=== PATIENT | female | born 1985 | race Caucasian/White ===

== ENCOUNTER 2017-09-27 18:50 | Emergency (ER) | payer BC, OTHER ==
[2017-09-27] MEDS ORDERED: Acetaminophen 325 MG TAB ONE (19:24)
[2017-09-27] MEDS ORDERED: traMADol HCl 50 MG TAB ONE (19:24)
--- NOTE | 2017-09-27 19:31 | RAD ---
EXAM: RIGHT ANKLE THREE VIEWS 09/27/17 COMPARISON: 06/02/13. HISTORY: Injury. Twisting injury. Patient stepped in a hole. Patient heard a pop. FINDINGS: Small spur of the calcaneus is noted. There is soft tissue swelling. Joint spaces are preserved. Fra cture is not appreciated. IMPRESSION: 1. No fracture. 2. Soft tissue swelling. POS: [facility]
== END 2017-09-27 20:00 | disposition home or self-care (01) ==
LOC: ERS 18:50
DX: S93.401A Sprain of unspecified ligament of right ankle, initial encounter (principal); W17.2XXA Fall into hole, initial encounter

== ENCOUNTER 2018-05-11 18:13 | Emergency (ER) | payer SELFPAY ==
[2018-05-11 20:14] LABS: Bilirubin Negative (Negative); Blood, Urine Small (Negative); Clarity CLEAR (Clear); Glucose, Urine (Dipstick) Negative (Negative); Leukocyte Negative (Negative); Nitrite Negative (Negative); Protein, Urine (Dipstick) Negative (Neg-Trace); Specific Gravity, Urine 1.009 (1.002-1.036); Urobilinogen 0.2 mg/dL (0.2-1.0); pH, Urine 6.5 (5.0-9.0)
[2018-05-11 20:19] LABS: Pregnancy Test - Urine (BHCG) Negative (Negative); Pregu Control Background? CLEAR/WHITE (CLR/WHITE); Pregu Control Bar Appear? YES (CONTROL BAR); Specific Gravity 1.009 (1.002-1.036)
[2018-05-11 20:25] LABS: Bacteria/HPF Rare-Few HPF (None Seen); Hyaline Casts/LPF 0-3 HYALINE CAST LPF (0-3 Hyaline); RBC/HPF 0-3 HPF (0-3); Squamous Epithelial 0-3 HPF (0-3)
[2018-05-13 23:44] LABS: Chlamydia by PCR Not Detected (NotDetected); GC by PCR Not Detected (NotDetected)
== END 2018-05-11 21:00 | disposition home or self-care (01) ==
LOC: ERS 18:13
DX: N39.0 Urinary tract infection, site not specified (principal)
CPT/HCPCS: 81003; 81015; 81025; 87480; 87491; 87510; 87591; 87660; 99284

== ENCOUNTER 2018-06-27 21:28 | Emergency (ER) | payer SELFPAY ==
[~2018-06-27 21:28] MED LIST: ISOVUE-370 76%-LOCM 1 ML ONE
[2018-06-27] MEDS ORDERED: Dexamethasone 4 MG TAB ONE (22:04)
[2018-06-27] MEDS ORDERED: HYDROcodone/Acetaminophen 7.5/325 mg Tablet ONE (22:04)
[2018-06-27 22:05] LABS: #Lymphocytes 1.6 thou/uL (1.20-3.40); #Monocytes 0.9 thou/uL (0.11-0.59); #Neutrophils 6.5 thou/uL (1.40-6.50); %Basophils 0.1 % (0.0-1.0); %Eosinophils 0.3 % (0.0-10.0); %Lymphocytes 17.5 % (21.0-51.0); %Monocytes 10.1 % (0.0-10.0); %Neutrophils 72.1 % (42.0-75.0); Mean Corpuscular HGB CONC 33.4 g/dL (32.0-36.0); Mean Corpuscular Volume 92.8 fL (78.0-98.0); Mean Platelet Volume 8.5 fL (7.4-10.4); Platelet Count 207 thou/uL (130-400); RBC Distribution Width 11.8 % (11.5-14.5); Red Blood Cell (RBC) Count 4.53 mill/uL (4.20-5.40)
[2018-06-27] MEDS ORDERED: Dexamethasone 10 MG/ML VIAL ONE (22:07)
[2018-06-27] MEDS ORDERED: Dexamethasone 4 mg/ml Vial ONE (22:08)
[2018-06-27 22:27] LABS: ALT (SGPT) 14 U/L (8-55); AST (SGOT) 17 U/L (5-34); Albumin 4.5 g/dL (3.5-5.0); Alkaline Phosphatase 84 U/L (40-150); Anion Gap 13 mmol/L (10-20); BUN (Urea Nitrogen) 9 mg/dL (7.0-18.7); Bilirubin, Total 0.4 mg/dL (0.2-1.2); Calc. Creatinine Clearance 0 mL/min (70-130); Calcium 9.4 mg/dL (7.8-10.44); Carbon Dioxide 25 mmol/L (22-29); Chloride 106 mmol/L (98-107); Estimated GFR-MDRD 81; Globulin 3.4 g/dL (2.4-3.5); Glucose 103 mg/dL (70-105); Potassium 3.7 mmol/L (3.5-5.1); Protein, Total 7.9 g/dL (6.0-8.3); Sodium 140 mmol/L (136-145)
--- NOTE | 2018-06-27 23:03 | CT ---
CT OF THE NECK 06/27/18 HISTORY: Peritonsillar abscess evaluation, sore throat. TECHNIQUE: Serial axial CT imaging is obtained at 2.5 mm interval from the skull base through the lung apices wi th IV contrast. Coronal and sagittal reformatted imaging obtained. FINDINGS: The retroantral fat and the parapharyngeal fat appears clear bilaterally. The parotid glands and submandibular glands are grossly unremarkable. The nasopharyngeal mucosa is thickened and demonstrates surface enhancement suggesting inflammatory c hange. Bilateral palatine tonsils are enlarged and demonstrate a striated hypodense appearance, right greater than left, suggesting phlegmonous change within the tonsils. No drainable abscess is noted a t this time. The hyoid bone, thyroid gland, thyroid cartilage, and cricoid cartilage appear grossly unremarkable. Mildly enlarged bilateral lateral retropharyngeal joints are noted measuring 9 mm short axis dimensio n on the right and 7 mm short axis dimension on the left. There are enlarged level IIa and level IIb lymph nodes bilaterally, presumably reactive in nature. The vascular structures appear patent. The osseous structures demonstrate degenerative change of the atlantoaxial interspace. Mild facet hyp ertrophy is noted on the left at C2-3 and there is mild disc space narrowing with anterior osteophyte formation at C5-6 and C6-7. Imaged lung apices are unremarkable. IMPRESSION: Edematous change involving the bilateral palatine tonsils and the nasopharyngeal mucosal with no drai nable abscess. Hypodensity of the palatine tonsils suggest bilateral phlegmonous change. Lymphadenopa thy is noted within the neck, presumably reactive in nature. Recommend followup imaging following juan atment to document resolution of the above described findings. POS: [facility]
[2018-06-27] MEDS ORDERED: Clindamycin 150 MG CAP ONE (23:09)
[2018-06-27] MEDS ORDERED: Ibuprofen 200 MG TAB ONE (23:14)
== END 2018-06-27 23:59 | disposition home or self-care (01) ==
LOC: ERS 21:28
DX: J36 Peritonsillar abscess (principal)
CPT/HCPCS: 36415; 70491; 80053; 85025; 96360; J1100; J8540